=== PATIENT | female | born 1985 | race Two or more races ===

== ENCOUNTER 2024-06-17 10:57 | Emergency (ER) | payer OTHER ==
[~2024-06-17] VITALS: Ht 162.6 cm; Wt 99.8 kg
[2024-06-17 11:22] VITALS: TEMP 98.2
[2024-06-17 11:49] LABS: BASOPHILS # (AUTO) 0.1 K/uL (0.0-0.2); BASOPHILS % (AUTO) 0.8 % (0.0-2.0); EOSINOPHILS # (AUTO) 0.2 K/uL (0.0-0.7); HEMATOCRIT 44 % (33-45); HEMOGLOBIN 14.8 g/dL (11.5-14.8); LYMPHOCYTES # (AUTO) 2.6 K/uL (0.8-4.8); LYMPHOCYTES % (AUTO) 14.7 % (20.0-44.0); MEAN CORPUSCULAR HEMOGLOBIN 31 PG (26.0-33.0); MEAN CORPUSCULAR HGB CONC 34 g/dl (31.0-36.0); MEAN CORPUSCULAR VOLUME 90 fL (82-100); MONOCYTES # (AUTO) 1.4 K/uL (0.1-1.30); MONOCYTES % (AUTO) 8.2 % (2.0-12.0); NEUTROPHILS # (AUTO) 13.2 K/uL (1.8-8.9); NEUTROPHILS % (AUTO) 75.3 % (43.0-81.0); PLATELET COUNT (AUTO) 344 K/uL (150-450); RED BLOOD CELL COUNT(AUTO) 4.85 MIL/uL (4.0-5.2); RED CELL DISTRIBUTION WIDTH 13.8 % (11.5-15.0); WHITE BLOOD COUNT (AUTO) 17.5 K/uL (4.3-11.0)
[2024-06-17 11:54] LABS: APPEARANCE,URINE CLEAR (CLEAR); BILIRUBIN,URINE NEGATIVE (NEGATIVE); BLOOD, URINE NEGATIVE Ery/uL (NEGATIVE); COLOR,URINE YELLOW (YELLOW); KETONES,URINE NEGATIVE (NEGATIVE); LEUKOCYTE ESTERASE ,URINE NEGATIVE (NEGATIVE); NITRITE, URINE POSITIVE (NEGATIVE); PH,URINE 6.5 (5.0-8.0); PROTEIN,URINE NEGATIVE (NEGATIVE); UGLUCOSE NEGATIVE (NEGATIVE); UROBILINOGEN,URINE 0.2 EU/dL (0.2)
[2024-06-17 11:55] LABS: PREGNANCY TEST URINE QUAL NEGATIVE (NEGATIVE)
[2024-06-17 12:03] LABS: CALCIUM, SERUM 9.2 mg/dL (8.5-10.1); CREATININE 1.1 mg/dL (0.6-1.3); POTASSIUM 4.1 mmol/L (3.5-5.1)
[2024-06-17 12:11] LABS: ADD URINE CULTURE YES; BACTERIA,URINE 1+ /HPF (None Seen); RBC,URINE 0-2 /HPF (0-2)
[2024-06-17 12:25] LABS: ALBUMIN 3.7 g/dL (3.4-5.0); BILIRUBIN,DIRECT 0.2 mg/dL (0.0-0.2)
[2024-06-17 12:42] LABS: BILIRUBIN,TOTAL 0.6 mg/dL (0.2-1.0)
[2024-06-17] MEDS: IV NS 0.9% 1,000 ML BAG IV ONE (13:29)
[2024-06-17] MEDS ORDERED: MAG HYDROX/AL HYDROX/SIMETH 30 ML UDC ONE (13:34)
[2024-06-17] MEDS ORDERED: LIDOCAINE VISCOUS 2% UD 15 ML UDC ONE (13:34)
[2024-06-17] MEDS ORDERED: ACETAMINOPHEN ES 500 MG TABLET ONE (13:34)
[2024-06-17] MEDS ORDERED: FAMOTIDINE/PF INJ 20 MG/2 ML VIAL IV ONE (13:35)
[2024-06-17] MEDS: ACETAMINOPHEN ES 500 MG TABLET PO ONE (13:42)
[2024-06-17] MEDS: LIDOCAINE VISCOUS 2% UD 15 ML UDC MM ONE (13:43)
[2024-06-17] MEDS: MAG HYDROX/AL HYDROX/SIMETH 30 ML UDC PO ONE (13:43)
[2024-06-17] MEDS: FAMOTIDINE/PF INJ 20 MG/2 ML VIAL IV ONE (13:45)
[2024-06-17] MEDS: CEFTRIAXONE 1 G in IV D5W 50 ML IV ONE (14:00)
[2024-06-17] MEDS ORDERED: CIPR500T5 PO (14:23)
[2024-06-17] MEDS ORDERED: POLY17PO4 PO (14:23)
[2024-06-17] MEDS ORDERED: ONDA4TAB5 PO (14:23)
[2024-06-17] MEDS ORDERED: IBUP-1955 PO (14:23)
[2024-06-17 14:44] VITALS: BP 115/72; O2SAT 97
== END 2024-06-17 14:44 | disposition home or self-care (01) ==
LOC: ER 11:02
DX: K59.00 Constipation, unspecified (principal); N39.0 Urinary tract infection, site not specified; E03.9 Hypothyroidism, unspecified; Z88.0 Allergy status to penicillin; Z88.2 Allergy status to sulfonamides
CPT/HCPCS: 99285; 74176; 96365; 96361; 96375; 85025; 80048; 83690; 80076; 84703; 81001; 36415; J3490; J7030